=== PATIENT | female | born 1940 | race Caucasian/White ===

== ENCOUNTER 2025-01-11 14:00 | Emergency (ER) | payer MEDICAID ==
[~2025-01-11] VITALS: Ht 154.9 cm; Wt 67.6 kg
[2025-01-11 14:10] VITALS: TEMP 98.1
[2025-01-11] MEDS ORDERED: FUROSEMIDE 40 MG/4 ML VIAL ONE (14:20)
[2025-01-11] MEDS ORDERED: NITROGLYCERIN PACKET 1 GM PACKET ONE (14:20)
[2025-01-11] MEDS: NITROGLYCERIN PACKET 1 GM PACKET TD ONE (14:25)
[2025-01-11] MEDS: FUROSEMIDE 40 MG/4 ML VIAL IV ONE (14:25)
[2025-01-11] MEDS ORDERED: METOPROLOL TARTRATE INJ 5 MG/5 ML AMPUL ONE (14:29)
[2025-01-11] MEDS ORDERED: LABETALOL 20 MG/4 ML VIAL ONE (14:29)
[2025-01-11] MEDS ORDERED: LABETALOL HCL IV 100MG VIAL IV ONE (14:30)
[2025-01-11 14:34] LABS: BASOPHILS # (AUTO) 0.1 K/uL (0.0-0.2); BASOPHILS % (AUTO) 0.7 % (0.0-2.0); EOSINOPHILS # (AUTO) 0.2 K/uL (0.0-0.7); EOSINOPHILS % (AUTO) 2.2 % (0.0-6.0); HEMATOCRIT 38 % (33-45); HEMOGLOBIN 12.8 g/dL (11.5-14.8); LYMPHOCYTES # (AUTO) 1.9 K/uL (0.8-4.8); MEAN CORPUSCULAR HEMOGLOBIN 30 PG (26.0-33.0); MEAN CORPUSCULAR HGB CONC 33 g/dl (31.0-36.0); MEAN CORPUSCULAR VOLUME 90 fL (82-100); MONOCYTES # (AUTO) 0.9 K/uL (0.1-1.30); MONOCYTES % (AUTO) 10.9 % (2.0-12.0); NEUTROPHILS # (AUTO) 4.9 K/uL (1.8-8.9); NEUTROPHILS % (AUTO) 62.2 % (43.0-81.0); PLATELET COUNT (AUTO) 147 K/uL (150-450); RED BLOOD CELL COUNT(AUTO) 4.26 MIL/uL (4.0-5.2); RED CELL DISTRIBUTION WIDTH 13.9 % (11.5-15.0); WHITE BLOOD COUNT (AUTO) 7.8 K/uL (4.3-11.0)
[2025-01-11 14:37] LABS: CARBON DIOXIDE 26 mmol/L (21-32); CHLORIDE 104 mmol/L (98-107); CREATININE 1.5 mg/dL (0.6-1.3); GLUCOSE 230 mg/dL (74-106); POTASSIUM 4.2 mmol/L (3.5-5.1); SODIUM SERUM 140 mmol/L (136-145); UREA NITROGEN, BLOOD 36 mg/dL (7-18)
[2025-01-11] MEDS: METOPROLOL TARTRATE INJ 5 MG/5 ML AMPUL IVP ONE (14:40)
[2025-01-11 14:45] LABS: INR 0.98 (0.91-1.10); PARTIAL THROMBOPLASTIN TIME 26.6 SEC (24.3-34.3); PROTHROMBIN TIME 10.1 SECS (9.2-11.1)
[2025-01-11 14:49] LABS: NT-PRO BNP 2407 pg/mL (0-125)
[2025-01-11 15:15] VITALS: BP 145/79; O2SAT 96
[2025-01-11] MEDS ORDERED: MECL-159 PO (15:22)
[2025-01-11] MEDS ORDERED: ASPI-1169 PO (15:22)
[2025-01-11] MEDS ORDERED: CLOP75TA15 PO (15:22)
[2025-01-11] MEDS ORDERED: ERGO500093 PO (15:22)
[2025-01-11] MEDS ORDERED: ACET325T53 PO (15:22)
[2025-01-11] MEDS ORDERED: GABA100C PO (15:22)
[2025-01-11] MEDS ORDERED: SENN-261 PO (15:22)
[2025-01-11] MEDS ORDERED: PANT20TA17 PO (15:22)
[2025-01-11] MEDS ORDERED: APIX2.5T PO (15:22)
[2025-01-11] MEDS ORDERED: LOSA25TA27 PO (15:22)
[2025-01-11] MEDS ORDERED: DAPA10TA PO (15:22)
[2025-01-11] MEDS ORDERED: ATOR20TA PO (15:22)
[2025-01-11] MEDS ORDERED: FURO40TA5 PO (15:22)
[2025-01-11] MEDS ORDERED: METO25TA4 PO (15:22)
== END 2025-01-11 15:40 | disposition short-term general hospital (02) ==
LOC: ER 14:04
DX: I21.3 ST elevation (STEMI) myocardial infarction of unspecified site (principal); I11.0 Hypertensive heart disease with heart failure; I50.9 Heart failure, unspecified; I25.10 Atherosclerotic heart disease of native coronary artery without angina pectoris; Z79.01 Long term (current) use of anticoagulants; Z79.02 Long term (current) use of antithrombotics/antiplatelets; Z79.82 Long term (current) use of aspirin; Z79.84 Long term (current) use of oral hypoglycemic drugs; Z79.899 Other long term (current) drug therapy; Z95.2 Presence of prosthetic heart valve; Z95.5 Presence of coronary angioplasty implant and graft
CPT/HCPCS: 99285; 96374; 71045; 96375; 93005 ×3; 85025; 80048; 36415; 84484; 85730; 83880; J1938; J3490 ×2